=== PATIENT | female | born 1965 | race Asian ===

== ENCOUNTER → 2017-04-30 | Outpatient (CLI) | payer MEDICAID ==
[~2017-04-30] MED LIST: REGADENOSON 0.4 MG/5 ML SYRINGE ONE
== END | disposition home or self-care (01) ==
LOC: RAD 10:31
PROVIDERS: ATTEND Internal Medicine Cardiovascular Disease
DX: I08.1 Rheumatic disorders of both mitral and tricuspid valves (principal); I37.1 Nonrheumatic pulmonary valve insufficiency; I10 Essential (primary) hypertension; E11.9 Type 2 diabetes mellitus without complications; R60.0 Localized edema; I48.1 Persistent atrial fibrillation; E66.01 Morbid (severe) obesity due to excess calories; I42.9 Cardiomyopathy, unspecified
CPT/HCPCS: 78452; 93017; 93306; A9502; C9898; J2785

== ENCOUNTER → 2018-08-17 | Outpatient (CLI) | payer MEDICAID | END | disposition home or self-care (01) | LOC: CVU 07:14 | PROVIDERS: ATTEND Internal Medicine Cardiovascular Disease | DX: I08.1 Rheumatic disorders of both mitral and tricuspid valves (principal); I10 Essential (primary) hypertension; I63.9 Cerebral infarction, unspecified; E66.01 Morbid (severe) obesity due to excess calories | CPT/HCPCS: 93306 ==

== ENCOUNTER → 2019-04-09 | Outpatient (CLI) | payer MEDICAID | END | disposition home or self-care (01) | LOC: CFH 13:11 | PROVIDERS: ATTEND Family Medicine | DX: Z12.31 Encounter for screening mammogram for malignant neoplasm of breast (principal) | CPT/HCPCS: 77067 ==

== ENCOUNTER 2019-09-20 13:04 | Outpatient (CLI) | payer MEDICAID | END 2019-09-20 23:59 | disposition home or self-care (01) | LOC: CVU 13:04 | PROVIDERS: ATTEND Internal Medicine Cardiovascular Disease | DX: I08.8 Other rheumatic multiple valve diseases (principal); I42.9 Cardiomyopathy, unspecified; I10 Essential (primary) hypertension; E66.01 Morbid (severe) obesity due to excess calories; Z86.73 Personal history of transient ischemic attack (TIA), and cerebral infarction without residual deficits | CPT/HCPCS: 93306 ==